=== PATIENT | female | born 1990 | race Caucasian/White ===

== ENCOUNTER 2019-04-24 19:23 | Emergency (ER) | payer OTHER ==
[2019-04-24 19:27] VITALS: BP 124/67; PULSE 80; TEMP 98.2; BMI 26.5
[2019-04-24] MEDS ORDERED: DIPHTH,PERTUSS(ACELL),TET 0.5 ML DISP.SYRIN IM ONE ×2 (19:40→19:49)
--- NOTE | 2019-04-24 19:43 | PDOC ---
History of Present Illness - General Chief Complaint: Pain Stated Complaint: RT FOOT PAIN Time Seen by Provider: 04/24/19 19:32 History Source: Patient Exam Limitations: No Limitations - History of Present Illness Initial Comments: 04/24/19 19:41 HISTORY OF PRESENT ILLNESS: 28-year-old woman denies medical history presents emergency department for evaluation after status post working on a sewing needle. Patient removed the needle prior to emergency department evaluation. The incident happened on 04/23. Patient is unsure of last tetanus shot. No recent travel or sick contacts. PAST MEDICAL HISTORY: Denies past medical history SURGICAL HISTORY: Denies ALLERGIES: No known drug allergies REVIEW OF SYSTEMS General/Constitutional: Denies fever or chills. Denies weakness, weight change. HEENT: Denies change in vision. Denies ear pain or discharge. Denies sore throat. Cardiovascular: Denies chest pain or shortness of breath. Respiratory: Denies cough, wheezing, or hemoptysis. Gastrointestinal: Denies nausea, vomiting, diarrhea or constipation. Denies rectal bleeding. Genitourinary: Denies dysuria, frequency, or change in urination. Musculoskeletal: see HPI Skin and breasts: Denies rash or easy bruising. Neurologic: Denies headache, vertigo, loss of consciousness, or loss of sensation. Psychiatric: Denies depression or anxiety. Endocrine: Denies increased thirst. Denies abnormal weight change. Hematologic/Lymphatic: Denies anemia, easy bleeding, or history of blood clots. Allergic/Immunologic: Denies hives or skin allergy. Denies latex allergy. PHYSICAL EXAM General Appearance: Well-appearing, appropriately dressed. No apparent distress , no intoxication. Respiratory/Chest: Lungs CTAB. No shortness of breath, chest tenderness, respiratory distress, accessory muscle use. No crackles, rales, rhonchi, stridor , wheezing, dullness Cardiovascular: RRR. S1, S2. No JVD, murmur, bradycardia, tachycardia. Vascular Pulses: Dorsalis-Pedis (R): 2+, Dorsalis-Pedis (L): 2+ Musculoskeletal/Extremities: Normal inspection. FROM of all extremities, normal capillary refill. Pelvis Stable. No CVA tenderness. No tenderness to extremities, pedal edema, swelling, erythema or deformity. Integumentary: Appropriate color, dry, warm. No cyanosis, erythema, jaundice or rash 04/24/19 19:43 Past History - Past Medical History Allergies/Adverse Reactions: Allergies Allergy/AdvReac Type Severity Reaction Status Date / Time No Known Allergies Allergy Verified 04/24/19 19:27 Home Medications: Ambulatory Orders Acetaminophen/Caffeine/Butalb [Fioricet -] 1 tab PO Q6H #12 tablet MDD 4 - Suicide/Smoking/Psychosocial Hx Smoking History: Never smoked Hx Alcohol Use: No Drug/Substance Use Hx: No Substance Use Type: None *Physical Exam - Vital Signs Last Vital Signs Temp Pulse Resp BP Pulse Ox 98.2 F 80 20 124/67 99 04/24/19 19:25 04/24/19 19:25 04/24/19 19:25 04/24/19 19:25 04/24/19 19:25 Medical Decision Making - Medical Decision Making 04/24/19 19:42 A/P: 28-year-old woman for evaluation after stepping on sewing needle Normal physical exam Boost[facility] Discharge home *DC/Admit/Observation/Transfer Diagnosis at time of Disposition: Puncture wound - Discharge Dispostion Disposition: HOME Condition at time of disposition: Stable Decision to Admit order: No - Referrals - Patient Instructions Additional Instructions: Take Tylenol or Motrin as needed for pain. Your tetanus shot is been updated on today's visit. This is good for the next 10 years. Thank you very much for choosing us provider emergent health care needs. - Post Discharge Activity
== END 2019-04-24 20:05 | disposition home or self-care (01) ==
LOC: JERFT 19:23
DX: S91.331A Puncture wound without foreign body, right foot, initial encounter (principal); W27.3XXA Contact with needle (sewing), initial encounter; Y93.01 Activity, walking, marching and hiking; Y92.89 Other specified places as the place of occurrence of the external cause; Y99.8 Other external cause status
CPT/HCPCS: 90715; 99281-25

== ENCOUNTER 2019-07-18 19:44 | Emergency (ER) | payer OTHER ==
[2019-07-18 19:50] VITALS: BP 103/55; PULSE 78; TEMP 98.2; BMI 26.6
--- NOTE | 2019-07-18 23:55 | PDOC ---
History of Present Illness - General Chief Complaint: Pain Stated Complaint: ABD PAIN History Source: Patient - History of Present Illness Initial Comments: 07/19/19 00:09 28 year old female c/o epigastric pain and nausea / vomiting 2x times today. patient also reports that she has been having dysuria and frequency. PMHX: has history of UTI LMP: 07/02/2019 Past History - Past Medical History Allergies/Adverse Reactions: Allergies Allergy/AdvReac Type Severity Reaction Status Date / Time No Known Allergies Allergy Verified 07/18/19 19:50 Home Medications: Ambulatory Orders Acetaminophen/Caffeine/Butalb [Fioricet -] 1 tab PO Q6H #12 tablet MDD 4 Nitrofurantoin Monohyd/M-Cryst [Macrobid -] 100 mg PO BID #20 capsule 07/19/19 COPD: No - Psycho Social/Smoking Cessation Hx Smoking History: Never smoked Hx Alcohol Use: No Drug/Substance Use Hx: No Substance Use Type: None Review of Systems - Review of Systems Able to Perform ROS?: Yes Is the patient limited [place] Citizen proficient: No Constitutional: No: Symptoms Reported, See HPI, Chills, Diaphoresis, Fever, Loss of Appetite, Malaise, Night Sweats, Weakness, Weight Stable, Unintentional Wgt. Loss, Unexplained wgt Loss, Other *Physical Exam - Vital Signs Last Vital Signs Temp Pulse Resp BP Pulse Ox 98.2 F 78 18 103/55 L 98 07/18/19 19:48 07/18/19 19:48 07/18/19 19:48 07/18/19 19:48 07/18/19 19:48 - Physical Exam General Appearance: Yes: Appropriately Dressed Respiratory/Chest: positive: Lungs Clear, Normal Breath Sounds Cardiovascular: positive: Regular Rhythm, Regular Rate Gastrointestinal/Abdominal: positive: Normal Bowel Sounds, Tender (epigastric area), Soft Musculoskeletal: positive: Normal Inspection. negative: CVA Tenderness Extremity: positive: Normal Capillary Refill, Normal Inspection, Normal Range of Motion Integumentary: positive: Normal Color, Dry, Warm Neurologic: positive: Fully Oriented, Alert, Normal Mood/Affect ED Progress Note - Progress Note Progress Note: 07/19/19 06:08 cystitis P: ua, urine culture anitbiotics well apprating adult, patient to follow up with pcp Discharge - Discharge Information Problems reviewed: Yes Clinical Impression/Diagnosis: Cystitis - Additional Discharge Information Prescriptions: Nitrofurantoin Monohyd/M-Cryst [Macrobid -] 100 mg PO BID #20 capsule - Follow up/Referral Referrals: Julito Shultz [Primary Care Provider] - - Patient Discharge Instructions Patient Printed Discharge Instructions: Acute Cystitis Additional Instructions: Drink plenty of fluids. Take Macrobid as prescribed. It is important that you recheck your Urinalysis once the antibiotic is completed. Please follow-up with your flight controls engineer as soon as possible Return to the emergency room for any worsening symptoms - Post Discharge Activity Work/Back to School Note: Back to Work
--- NOTE | 2019-07-18 23:58 | PDOC ---
*Physical Exam - Vital Signs Last Vital Signs Temp Pulse Resp BP Pulse Ox 98.2 F 78 18 103/55 L 98 07/18/19 19:48 07/18/19 19:48 07/18/19 19:48 07/18/19 19:48 07/18/19 19:48 Medical Decision Making - Medical Decision Making 07/18/19 23:58 Patient seen by the advanced practice provider under my direct supervision. Ancillary testing reviewed as necessary. I agree with plan as outlined by the advanced practice provider. Discharge - Discharge Information Problems reviewed: Yes Clinical Impression/Diagnosis: Cystitis - Additional Discharge Information Prescriptions: Nitrofurantoin Monohyd/M-Cryst [Macrobid -] 100 mg PO BID #20 capsule - Follow up/Referral Referrals: Julito Shultz [Primary Care Provider] - - Patient Discharge Instructions Patient Printed Discharge Instructions: Acute Cystitis Additional Instructions: Drink plenty of fluids. Take Macrobid as prescribed. It is important that you recheck your Urinalysis once the antibiotic is completed. Please follow-up with your bindery technician as soon as possible Return to the emergency room for any worsening symptoms - Post Discharge Activity Work/Back to School Note: Back to Work
[2019-07-19] MEDS ORDERED: ONDANSETRON *ODT* 4 MG TABLET SL ONE (00:05)
[2019-07-19] MEDS ORDERED: ONDANSETRON *ODT* 4 MG TABLET ONE (00:21)
[2019-07-19 01:07] LABS: EPI CELLS 8.9 /HPF (0-5/HPF); HYALINE CASTS 47 /lpf (0-8); URINE APPEARANCE CLOUDY; URINE BACTERIA 100.5 /hpf (NEGATIVE); URINE BILIRUBIN NEGATIVE (NEGATIVE); URINE COLOR YELLOW; URINE GLUCOSE (UA) NEGATIVE (NEGATIVE); URINE KETONE NEGATIVE (NEGATIVE); URINE LEUK ESTERASE TRACE (NEGATIVE); URINE NITRITE NEGATIVE (NEGATIVE); URINE PROTEIN NEGATIVE (NEGATIVE); URINE RBC 3 /hpf (0-4); URINE WBC 27 /hpf (0-5)
== END 2019-07-19 01:28 | disposition home or self-care (01) ==
LOC: JER 19:44
DX: N30.00 Acute cystitis without hematuria (principal); Z87.440 Personal history of urinary (tract) infections
CPT/HCPCS: 81003; 84703; 99282-25; Q0162